=== PATIENT | male | born 1945 | race African-American/Black ===

== ENCOUNTER → 2017-10-13 | Outpatient (CLI) | payer MEDICARE, MEDICAID | END | disposition home or self-care (01) | LOC: LAB 12:53 | PROVIDERS: ATTEND Urology | DX: Z85.46 Personal history of malignant neoplasm of prostate (principal) | CPT/HCPCS: 36415; 82565; 84520 ==

== ENCOUNTER → 2017-10-14 | Outpatient (CLI) | payer MEDICARE, MEDICAID ==
[~2017-10-14] MED LIST: IOHEXOL-300 100 ML BOTTLE ONE
== END | disposition home or self-care (01) ==
LOC: NM 07:34
PROVIDERS: ATTEND Urology
DX: C61 Malignant neoplasm of prostate (principal); M48.061 Spinal stenosis, lumbar region without neurogenic claudication; M47.894 Other spondylosis, thoracic region
CPT/HCPCS: 72193; 78306; A9503; Q9967

== ENCOUNTER 2018-06-26 21:05 | Emergency (ER) | payer OTHER, MEDICAID ==
[~2018-06-26] VITALS: Ht 175.3 cm; Wt 86.8 kg
[~2018-06-26 21:05] MED LIST changes: +BICA50TA7 PO; -IOHEXOL-300 100 ML BOTTLE ONE; +LACT10SO6 PO; +LOSA1TAB34 PO; +TERA2CAP4 PO
[2018-06-26] MEDS ORDERED: ONDANSETRON HCL 4MG/2ML VIAL IV STA (23:11)
[2018-06-26] MEDS ORDERED: MORPHINE SULFATE 4 MG/ML CPJ (NOT FOR IM USE) IV STA (23:11)
[2018-06-26] MEDS ORDERED: SODIUM CHLORIDE 0.9% 1,000 ML IV ONE (23:11)
[2018-06-27 00:02] LABS: HEMATOCRIT. 39.8 % (42.0-52.0); HEMOGLOBIN. 13.6 g/dL (14.0-18.0); MEAN CORPUSCULAR HEMOGLOBIN 32.8 pg (28.0-32.0); MEAN CORPUSCULAR VOLUME 96.2 fL (80.0-94.0); MEAN PLATELET VOLUME 9.7 fl (7.4-10.4); PLATELET 98 x1000/uL (130-400); RED BLOOD CELL COUNT 4.14 mill/uL (4.7-6.1); RED CELL DISTRIBUTION WIDTH 13.2 % (11.6-14.6)
[2018-06-27 00:12] LABS: CHLORIDE 104 mEq/L (98-107)
[2018-06-27 00:53] LABS: ATYPICAL LYMPHOCYTES 2
[2018-06-27 00:54] LABS: PLATELET ESTIMATE SLIGHTLY DECREASED
[2018-06-27 03:55] VITALS: BP 108/63
== END 2018-06-27 04:15 | disposition home or self-care (01) ==
LOC: ER 21:05
DX: K29.70 Gastritis, unspecified, without bleeding (principal); R09.89 Other specified symptoms and signs involving the circulatory and respiratory systems; I10 Essential (primary) hypertension; Z98.890 Other specified postprocedural states; Z85.9 Personal history of malignant neoplasm, unspecified; Z79.899 Other long term (current) drug therapy
CPT/HCPCS: 36415; 71045; 80053; 83690; 83880; 84484; 85025; 93005; 96361; 96374; 96375; 99285; J2270; J2405; J7030